=== PATIENT | female | born 1980 | race Hispanic/Latino ===

== ENCOUNTER 2019-09-11 12:32 | Emergency (ER) | payer OTHER, SELFPAY ==
[2019-09-11] MEDS ORDERED: dexAMETHasone 10 MG/ML VIAL ONE (15:10)
[2019-09-11] MEDS ORDERED: MEPERIDINE HCL 50 MG/ML ONE (15:10)
[2019-09-11 15:11] LABS: Urine Blood 2+ (NEG); Urine Glucose NEGATIVE (NEG); Urine Protein NEGATIVE (NEG); Urine Specific Gravity 1.015 (1.005-1.030)
[2019-09-11 15:11] LABS: Urine Specific Gravity 1.015 (1.005-1.030)
--- NOTE | 2019-09-11 15:58 | ER ---
Nurse's Notes [facility] Name: Parisa Flowers Age: 39 yrs Sex: Female : 1980 Arrival Date: 09/11/2019 Time: 12:39 Bed 5 Private MD: Diagnosis: Low back pain Presentation: 09/10 12:39 Chief complaint: EMS states: Pt. c/o low back pain, not in her spine but in the muscles rb1 along side of her spine. No medical history or medications. BP 133/86, P 88, 98% RA, BS 122. She is currently on her menstrual cycle. Coronavirus screen: Proceed with normal triage. Ebola Screen: Patient negative for fever greater than or equal to 101.5 degrees Fahrenheit, and additional compatible Ebola Virus Disease symptoms. Initial Sepsis Screen: Does the patient meet any 2 criteria? No. Patient's initial sepsis screen is negative. Does the patient have a suspected source of infection? No. Patient's initial sepsis screen is negative. Risk Assessment: Do you want to hurt yourself or someone else? Patient reports no desire to harm self or others. Onset of symptoms was September 11, 2019. 12:39 Method Of Arrival: EMS: [facility] rb1 12:39 Acuity: [facility] 3 rb1 Triage Assessment: 12:39 General: Appears uncomfortable, Behavior is calm, cooperative, Denies fever, feeling rb1 ill. Pain: Complains of pain in low back Pain does not radiate. Pain currently is 10 out of 10 on a pain scale. Neuro: Level of Consciousness is awake, alert, obeys commands, Oriented to person, place, time, situation. Cardiovascular: Capillary refill < 3 seconds. Respiratory: Airway is patent Respiratory effort is even, unlabored, Respiratory pattern is regular, symmetrical. GI: No signs and/or symptoms were reported involving the gastrointestinal system. : No signs and/or symptoms were reported regarding the genitourinary system. Derm: Skin is pink, warm \T\ dry. Musculoskeletal: Reports Has difficulty walking or trying to move around due to pain. 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 - Social history:: Smoking status: Patient/guardian denies using. - Family history:: not pertinent. - Hospitalizations: : No recent hospitalization is reported. Screenin:39 Abuse screen: Denies threats or abuse. Nutritional screening: No deficits noted. rb1 Tuberculosis screening: No symptoms or risk factors identified. Fall Risk No fall in past 12 months (0 pts). Secondary diagnosis (15 points) impaired mobility, No IV (0 pts). Ambulatory Aid- None/Bed Rest/Nurse Assist (0 pts). Gait- Impaired (20 pts.). Mental Status- Oriented to own ability (0 pts). Total Poole Fall Scale indicates Low Risk Score (25-44 pts). Fall prevention measures have been instituted. Side Rails Up X 2 Placed close to Nursing Station 1:1 attendant Assigned to Pt. Frequent Obs/Assesments occuring As available Patient and Family Educated on Fall Prevention Program and strategies. Assessment: 12:39 General: See triage assessment. rb1 13:30 Reassessment: Patient appears in no apparent distress at this time. No changes from rb1 previously documented assessment. 14:11 Reassessment: Place pt. on a bedpan. rb1 14:21 Reassessment: Pt. is unable to urinate at this time. rb1 14:37 Reassessment: Patient appears in no apparent distress at this time. Patient and/or rb1 family updated on plan of care and expected duration. Pain level reassessed. Patient is alert, oriented x 3, equal unlabored respirations, skin warm/dry/pink. Placed pt. on the bedpan. 14:44 Reassessment: Pt. is unable to urinate at this time. rb1 15:00 Reassessment: Pt assisted to restroom via wheelchair. Pt tolerated poorly. Urine aa5 specimen collected. . 15:03 Reassessment: Pt placed back in room ER 5 . aa5 16:00 Reassessment: Patient appears in no apparent distress at this time. Patient and/or rb1 family updated on plan of care and expected duration. Pain level reassessed. Patient is alert, oriented x 3, equal unlabored respirations, skin warm/dry/pink. Patient states symptoms have improved. Vital Signs: 12:39 BP 126 / 83; Pulse 88; Resp 17; Temp 98.0; Pulse Ox 98% ; Weight 127.01 kg; Height 5 rb1 ft. 2 in. (157.48 cm); Pain 10/10; 13:30 BP 127 / 84; Pulse 89; Resp 17; Pulse Ox 98% ; rb1 14:30 BP 126 / 79; Pulse 81; Resp 19; Pulse Ox 99% on R/A; rb1 15:33 BP 129 / 86; Pulse 86; Resp 17; Pulse Ox 99% ; rb1 16:29 BP 126 / 82; Pulse 88; Resp 18; Pulse Ox 100% on R/A; rb1 12:39 Body Mass Index 51.21 (127.01 kg, 157.48 cm) rb1 ED Course: 12:39 Patient arrived in ED. rn 12:39 Antoine Saha MD is Attending Physician. rn 12:39 Arm band placed on right wrist. rb1 12:39 Patient has correct armband on for positive identification. Bed in low position. Call rb1 light in reach. Side rails up X 1. Pulse ox on. NIBP on. Warm blanket given. 13:03 Yamilex Torres, RN is Primary Nurse. rb1 13:16 Triage completed. rb1 16:31 No provider procedures requiring assistance completed. Patient did not have IV access rb1 during this emergency room visit. Administered Medications: 15:05 Drug: Decadron 10 mg Route: IM; Site: left deltoid; aa5 15:20 Follow up: Response: No adverse reaction rb1 15:05 Drug: Demerol 50 mg Route: IM; Site: right deltoid; aa5 15:34 Follow up: Response: No adverse reaction; Pain is decreased rb1 Outcome: 15:58 Discharge ordered by . rn 16:31 Discharged to home via wheelchair, with family. rb1 16:31 Condition: stable 16:31 Discharge instructions given to patient, Instructed on discharge instructions, follow up and referral plans. medication usage, Demonstrated understanding of instructions, follow-up care, medications, Prescriptions given X 2. 16:32 Patient left the ED. rb1 Signatures: Antoine Saha MD MD rn Calderon, Audri, RN RN aa5 Yamilex Torres, CAMERON RN rb1 Corrections: (The following items were deleted from the chart) 15:37 14:37 Reassessment: Placed pt. on the bedpan. rb1 rb1
--- NOTE | 2019-09-11 15:58 | EDPHYS ---
Physician Documentation [facility] Name: Parisa Flowers Age: 39 yrs Sex: Female : 1980 Arrival Date: 09/11/2019 Time: 12:39 Bed 5 Private MD: ED Physician Antoine Saha HPI: 09/10 12:40 This 39 yrs old Female presents to ER via Unassigned with complaints of back rn pain. 12:40 The patient presents with pain that is acute. The symptoms are located in the low back. rn Onset: The symptoms/episode began/occurred this morning. The pain does not radiate. Modifying factors: The patient symptoms are alleviated by nothing, the patient symptoms are aggravated by any movement. Severity of symptoms: At their worst the symptoms were mild, in the emergency department the symptoms are unchanged. The patient has not experienced similar symptoms in the past. Reports lower back pain, bilateral, feels like "muscle spasm", no acute injury or accident, felt it this morning when getting out of bed, hurts to twist, no bowel/bladder problems, does not have abd pain or feel like has UTI. Denies . . 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 - Social history:: Smoking status: Patient/guardian denies using. - Family history:: not pertinent. - Hospitalizations: : No recent hospitalization is reported. ROS: 12:40 Constitutional: Negative for fever, chills, and weight loss, Eyes: Negative for injury, rn pain, redness, and discharge, Cardiovascular: Negative for chest pain, palpitations, and edema, Respiratory: Negative for shortness of breath, cough, wheezing, and pleuritic chest pain, Abdomen/GI: Negative for abdominal pain, nausea, vomiting, diarrhea, and constipation, Back: + lower back pain, negative for injury : Negative for injury, bleeding, discharge, and swelling, MS/Extremity: Negative for injury and deformity, Skin: Negative for injury, rash, and discoloration, Neuro: Negative for headache, weakness, numbness, tingling, and seizure. Exam: 12:40 Constitutional: This is a well developed, well nourished patient who is awake, alert, rn and in no acute distress. Cardiovascular: Regular rate and rhythm. No pulse deficits. Respiratory: No increased work of breathing, no retractions or nasal flaring. Abdomen/GI: soft, non-tender Back: No spinal tenderness. + bilateral perilumbar muscular tenderness without ecchymosis or signs of injury Skin: Warm, dry with normal turgor. Normal color with no rashes, no lesions, and no evidence of cellulitis. MS/ Extremity: Pulses equal, no cyanosis. Neurovascular intact. Full, normal range of motion. Equal circumference. Neuro: Awake and alert, GCS 15, oriented to person, place, time, and situation. Motor strength 5/5 in all extremities. Sensory grossly intact. Cerebellar exam normal. Vital Signs: 12:39 BP 126 / 83; Pulse 88; Resp 17; Temp 98.0; Pulse Ox 98% ; Weight 127.01 kg; Height 5 rb1 ft. 2 in. (157.48 cm); Pain 10/10; 13:30 BP 127 / 84; Pulse 89; Resp 17; Pulse Ox 98% ; rb1 14:30 BP 126 / 79; Pulse 81; Resp 19; Pulse Ox 99% on R/A; rb1 15:33 BP 129 / 86; Pulse 86; Resp 17; Pulse Ox 99% ; rb1 16:29 BP 126 / 82; Pulse 88; Resp 18; Pulse Ox 100% on R/A; rb1 12:39 Body Mass Index 51.21 (127.01 kg, 157.48 cm) rb1 MDM: 12:39 Patient medically screened. rn 15:57 Differential diagnosis: arthritis, back strain, disc bulge, radiculopathy, muscle rn spasm. Data reviewed: vital signs, nurses notes, and as a result, I will discharge patient. Counseling: I had a detailed discussion with the patient and/or guardian regarding: the historical points, exam findings, and any diagnostic results supporting the discharge/admit diagnosis, lab results, the need for outpatient follow up, to return to the emergency department if symptoms worsen or persist or if there are any questions or concerns that arise at home. Response to treatment: the patient's symptoms have mildly improved after treatment, and as a result, I will discharge patient. Special discussion: I discussed with the patient/guardian in detail that at this point there is no indication for admission to the hospital. It is understood, however, that if the symptoms persist or worsen the patient needs to return immediately for re-evaluation. 09/10 15:00 Order name: Urine Dipstick-Ancillary; Complete Time: 15:26 EDGA 09/10 15:00 Order name: Urine --Ancillary; Complete Time: 15:26 EDGA 09/10 12:40 Order name: Urine Test (obtain specimen); Complete Time: 15: rn 09/10 12:40 Order name: Urine Dipstick-Ancillary (obtain specimen); Complete Time: 15: rn Administered Medications: 15:05 Drug: Decadron 10 mg Route: IM; Site: left deltoid; aa5 15:20 Follow up: Response: No adverse reaction rb1 15:05 Drug: Demerol 50 mg Route: IM; Site: right deltoid; aa5 15:34 Follow up: Response: No adverse reaction; Pain is decreased rb1 Disposition: 09/11/19 15:58 Discharged to Home. Impression: Low back pain. - Condition is Stable. - Discharge Instructions: Back Pain, Adult. - Prescriptions for Cyclobenzaprine 10 mg Oral Tablet - take 1 tablet by ORAL route every 8 hours As needed; 20 tablet. Medrol (Brandin) 4 mg Oral Tablets, Dose Pack - take 1 tablet by ORAL route as directed - follow package instructions; 1 packet. - Medication Reconciliation Form, Thank You Letter, Antibiotic Education, Prescription Opioid Use form. - Follow up: Private Physician; When: As needed; Reason: Recheck today's complaints, Re-evaluation by your physician. - Problem is new. - Symptoms have improved. Signatures: Dispatcher [employer] [facility] Antoine Saha MD MD rn Calderon, Audri RN RN aa5 Yamilex Torres, CAMERON RN rb1 Corrections: (The following items were deleted from the chart) 16:32 15:58 09/11/2019 15:58 Discharged to Home. Impression: Low back pain. Condition is rb1 Stable. Discharge Instructions: Back Pain, Adult. Prescriptions for Cyclobenzaprine 10 mg Oral Tablet - take 1 tablet by ORAL route every 8 hours As needed; 20 tablet, Medrol (Brandin) 4 mg Oral Tablets, Dose Pack - take 1 tablet by ORAL route as directed - follow package instructions; 1 packet. and Forms are Medication Reconciliation Form, Thank You Letter, Antibiotic Education, Prescription Opioid Use. Follow up: Private Physician; When: As needed; Reason: Recheck today's complaints, Re-evaluation by your physician. Problem is new. Symptoms have improved. rn
[2019-09-11 16:37] VITALS: TEMP 98
[2019-09-11 16:41] VITALS: BP 126/82; O2SAT 100
== END 2019-09-11 16:32 | disposition home or self-care (01) ==
LOC: ER 12:32
DX: M54.5 Low back pain (principal)
CPT/HCPCS: 81025; 81003; 96372; 99284; J1100; J2175